=== PATIENT | female | born 1990 | race Caucasian/White ===

== ENCOUNTER 2019-05-30 07:29 | Inpatient (IN) | payer OTHER ==
[2019-05-30] MEDS ORDERED: DEXTROSE 5%-LACTATED RINGERS 1,000 ML IV SCH (09:45)
[2019-05-30] MEDS ORDERED: AMPICILLIN - 2 GM in SODIUM CHLORIDE 100 ML IVPB ONE (20:00)
[2019-05-30] MEDS ORDERED: ONDANSETRON 4 MG/2 ML VIAL IVPB ONE ×2 (20:00→20:30)
[2019-05-30] MEDS ORDERED: DEXTROSE 5%-LACTATED RINGERS 500 ML IV ONE ×2 (20:00→21:00)
[2019-05-30 20:42] LABS: BASO % 0.5 % (0-2.0); HEMATOCRIT 42.1 % (32.4-45.2); HEMOGLOBIN 14.4 GM/dL (10.7-15.3); LYMPH % 8.7 % (8-40); MCH 31.4 pg (25.7-33.7); MCHC 34.2 g/dl (32.0-36.0); MEAN CELL VOLUME 91.7 fl (80-96); MEAN PLT VOLUME 9.4 fl (7.5-11.1); MONO % 2.4 % (3.8-10.2); NEUT % 88.4 % (42.8-82.8); PLATELET COUNT 268 K/MM3 (134-434); RBC 4.59 M/mm3 (3.60-5.2); RDW 15.3 % (11.6-15.6); WHITE BLOOD COUNT 18.3 K/mm3 (4.0-10.0)
--- NOTE | 2019-05-30 20:49 | HP ---
Past Medical History - Primary Care Physician PCP:: Dileep Zamora - Admission Chief Complaint: 38 weeks, labor History of Present Illness: 29 yo f 38 weeks in labor , cx 6 cm 80 vx -3 mi, bulging , fhr cat 1 , regular contraction, no bleeding, no fever History Source: Patient Limitations to Obtaining History: No Limitations - Past Medical History ...: 1 ...Para: 0 ...Term: 0 ...: 0 ...Spon : 0 ...Induced : 0 ...EDC by [facility]: 06/09/19 - Past Surgical History Hx Myomectomy: No Hx Transabdominal Cerclage: No - Smoking History Smoking history: Never smoked Have you smoked in the past 12 months: No Aproximately how many cigarettes per day: 0 - Alcohol/Substance Use Hx Alcohol Use: No History of Substance Use: reports: None - Social History Usual Living Arrangement: Yes: With Spouse History of Recent Travel: No Home Medications - Allergies Allergies/Adverse Reactions: Allergies Allergy/AdvReac Type Severity Reaction Status Date / Time acetaminophen [From Percocet] Allergy Severe Itching Verified 05/30/19 09:45 oxycodone [From Percocet] Allergy Severe Itching Verified 05/30/19 09:45 PERCOCET Allergy Severe Itching Uncoded 02/19/14 14:38 - Home Medications Home Medications: Ambulatory Orders No Home Medications 0 dose .ROUTE UTDICT 05/24/12 Review of Systems - Review of Systems Constitutional: reports: No Symptoms Eyes: reports: No Symptoms HENT: reports: No Symptoms Neck: reports: No Symptoms Cardiovascular: reports: No Symptoms Respiratory: reports: No Symptoms Gastrointestinal: reports: No Symptoms Genitourinary: reports: No Symptoms Breasts: reports: No Symptoms Reported Musculoskeletal: reports: No Symptoms Integumentary: reports: No Symptoms Neurological: reports: No Symptoms Endocrine: reports: No Symptoms Hematology/Lymphatic: reports: No Symptoms Psychiatric: reports: No Symptoms Physical Exam - Maternity Vital Signs: Vital Signs Temperature 97.9 F 05/30/19 09:00 Pulse Rate 94 H 05/30/19 09:00 Respiratory Rate 20 05/30/19 09:00 Blood Pressure 118/75 05/30/19 09:00 O2 Sat by Pulse Oximetry (%) Constitutional: Yes: Well Nourished, No Distress, Calm Eyes: Yes: WNL, Conjunctiva Clear, EOM Intact HENT: Yes: WNL, Atraumatic, Normocephalic Neck: Yes: WNL, Supple, Trachea Midline Cardiovascular: Yes: WNL, Regular Rate and Rhythm Breast(s): Yes: WNL - Abdominal Exam/OB Fundal Height: 40 Number of Fetuses: Single Presentation: Vertex Contractions: Yes Regularity: Regular Intensity: Strong Monitor Mode: External Heart Rate Location: LLQ Accelerations: Non-Uniform Decelerations: None - Vaginal Exam/OB Vaginal Bleediing: Bloody Show Speculum Exam: No Dilatation (cm): 6 cm Effacement (%): 80 Amniotic Membrane Status: Bulging Presentation: Vertex/Position Station: -3 - Physical Exam Edema: Yes Edema: LLE: 1+, RLE: 1+ Deep Tendon Reflex Grade: Normal +2 Psychiatric: Yes: WNL Hemorrhage Risk Assessment - Risk Factors High Risk Factors: Yes: Active bleeding on admission, None Risk Score: 1 Risk Level: Medium Risk Problem List - Problems (1) First stage of labor established Code(s): [id number] - Assessment/Plan admit [facility] pain management
[2019-05-30] MEDS ORDERED: PROMETHAZINE HCL 25 MG/1 ML VIAL IVPUSH ONE (20:50)
[2019-05-30] MEDS ORDERED: BUTORPHANOL TARTRATE 1 MG/ML VIAL IVPUSH ONE (20:50)
[2019-05-30 20:52] LABS: INR 0.95 (0.83-1.09); PROTHROMBIN TIME (PATIENT) 11.2 SEC (9.7-13.0)
[2019-05-30 20:54] LABS: ACTIVATED PTT 25.2 SECONDS (25.2-36.5)
[2019-05-30 21:12] LABS: BLOOD UREA NITROGEN 11.4 mg/dL (7-18); CALCIUM 9.1 mg/dL (8.5-10.1); CREATININE 0.6 mg/dL (0.55-1.3); POTASSIUM 4.1 mmol/L (3.5-5.1)
[2019-05-30 21:23] VITALS: BMI 41.1
--- NOTE | 2019-05-30 23:07 | PN ---
Progress Note (short form) - Note Progress Note: 10 30 pm cx 8 cm 80 vx -1 arom, clear fhr cat 1, contraction q 43 to 4 min, wants epidural anesthesia Problem List - Problems (1) First stage of labor established Code(s): HOO8447 -
[2019-05-30] MEDS: FENTANYL/BUPIVACAINE/NS/PF - PCEA - 50 ML DISP.SYRIN EP SCH (23:15)
[2019-05-30] MEDS ORDERED: ELECTROLYTE-148 SOLN 1,000 ML IV SCH (23:15)
[2019-05-30] MEDS ORDERED: OXYTOCIN 30 UNITS in 0.9% NS 30 UNIT/500 ML INFUS.BAG IVPB SCH (23:45)
[2019-05-30] MEDS ORDERED: NALOXONE HCL 0.4 MG/ML VIAL IVPUSH PRN (23:53)
[2019-05-31] MEDS: AMPICILLIN - 1 GM in SODIUM CHLORIDE 100 ML IVPB SCH ×3 (00:28→13:05)
--- NOTE | 2019-05-31 04:30 | PN ---
Progress Note (short form) - Note Progress Note: cx 9 cm , 100 vx 0 MR , fhr 150 , reactive , will start pushings soon afebrile Problem List - Problems (1) First stage of labor established Code(s): [id number] -
[2019-05-31] MEDS ORDERED: BISACODYL 10 MG SUPP.RECT RC PRN (06:48)
[2019-05-31] MEDS ORDERED: METHYLERGONOVINE MALEATE 0.2 MG/1 ML AMP IM PRN (06:48)
[2019-05-31] MEDS ORDERED: BENZOCAINE 28 GM HEMORRHOIDAL OINTMENT TP PRN (06:48)
[2019-05-31] MEDS ORDERED: BENZOCAINE 20% 57 GM BOTTLE TP PRN (06:48)
[2019-05-31] MEDS ORDERED: WITCH HAZEL 50% (TUCKS) 40 PAD/JAR PAD TP PRN (06:48)
[2019-05-31] MEDS ORDERED: D5W-LR W/ 20 UNITS OXYTOCIN 20 UNIT/1,000 ML INFUS.BAG IV SCH (07:00)
[2019-05-31] MEDS ORDERED: OXYTOCIN 20 UNITS in 0.9% NS 20 UNIT/1,000 ML INFUS.BAG IV ONE (08:38)
--- NOTE | 2019-05-31 09:05 | PN ---
Delivery - Delivery Vaginal Delivery: Spontaneous Type of Anesthesia: Epidural Episiotomy/Laceration: Right Mediolateral (cx fully dilated ,RML episiotomy done , head delivered , ant. post. shoulder with no difficulty , live baby boy, 9/9, placenta complete , RML episiotomy in 3 layers with 2 0 chromic, rectal exam negative, no complication) EBL (cc): 500 Delivery, Single - Stages of Labor Date 1st Stage Initiatied: 05/30/19 Time 1st Stage Initiated: 20:30 Date 2nd Stage Initiated: 05/31/19 Time 2nd Stage Initiated: 05:30 Date of Delivery: 05/31/19 Time of Delivery: 05:55 Time Placenta Delivered: 05:57 - Condition of Play Back Operator/Extra Hand Present: No Gender: Male Weight: 8 lb 1 oz Position: Left, OA Total Hours ROM (Hrs/Mins): 7h 15m - 1 Minute Total Score: 9 5 Minutes Total Score: 9 - [place] Feeding Plan Initial Plan: Exclusive throughout hospitalization
[2019-05-31] MEDS ORDERED: OXYTOCIN 20 UNITS in 0.9% NS 20 UNIT/1,000 ML INFUS.BAG IV SCH (09:15)
[2019-05-31] MEDS: PRENATAL VITAMINS W/ FOLIC ACID TABLET (FP) PO SCH (10:27)
[2019-05-31] MEDS: FERROUS SO4 325 MG TABLET (FP) PO SCH ×2 (10:27→18:26)
[2019-05-31] MEDS: IBUPROFEN 600 MG TABLET (FP) PO PRN ×2 (13:08→18:26)
[2019-06-01] MEDS: IBUPROFEN 600 MG TABLET (FP) PO PRN ×5 (00:58→21:49)
[2019-06-01 07:52] LABS: BASO % 0.4 % (0-2.0); EOS % 0.7 % (0-4.5); HEMATOCRIT 23.4 % (32.4-45.2); HEMOGLOBIN 7.9 GM/dL (10.7-15.3); LYMPH % 18.9 % (8-40); MCHC 33.8 g/dl (32.0-36.0); MEAN CELL VOLUME 94.9 fl (80-96); MEAN PLT VOLUME 8.5 fl (7.5-11.1); MONO % 5.2 % (3.8-10.2); NEUT % 74.8 % (42.8-82.8); PLATELET COUNT 198 K/MM3 (134-434); RBC 2.47 M/mm3 (3.60-5.2); RDW 15.6 % (11.6-15.6)
[2019-06-01] MEDS: FERROUS SO4 325 MG TABLET (FP) PO SCH ×2 (08:27→17:15)
[2019-06-01] MEDS: PRENATAL VITAMINS W/ FOLIC ACID TABLET (FP) PO SCH (09:13)
[2019-06-01] MEDS: FENTANYL/BUPIVACAINE/NS/PF - PCEA - 50 ML DISP.SYRIN EP SCH (10:30)
--- NOTE | 2019-06-01 13:49 | PN ---
Post Progress Note - Subjective Subjective: Patient without acute complaints. Reports tolerating oral intake without nausea or vomiting. Ambulating without dizziness. Denies fevers or chills. Pain well controlled with oral pain medication. without difficulty. Passing flatus. Post Day: 1 Type of Delivery: Vital Signs: Vital Signs Temperature 97.8 F 06/01/19 09:27 Pulse Rate 97 H 06/01/19 09:27 Respiratory Rate 20 06/01/19 09:27 Blood Pressure 116/64 06/01/19 09:27 O2 Sat by Pulse Oximetry (%) 100 05/31/19 08:50 Breast Exam: Yes: Soft Uterus: Yes: Fundus Firm Abdomen/GI: Yes: Abdomen soft Lochia: Yes: Rubra Lochia, amount: Small Extremities: Yes: Calves non-tender Perineum: Yes: Episiotomy Activity: Ambulating - Labs Labs: CBC WBC 14.0 K/mm3 (4.0-10.0) H 06/01/19 07:15 RBC 2.47 M/mm3 (3.60-5.2) L 06/01/19 07:15 Hgb 7.9 GM/dL (10.7-15.3) L 06/01/19 07:15 Hct 23.4 % (32.4-45.2) L D 06/01/19 07:15 MCV 94.9 fl (80-96) 06/01/19 07:15 MCH 32.0 pg (25.7-33.7) 06/01/19 07:15 MCHC 33.8 g/dl (32.0-36.0) 06/01/19 07:15 RDW 15.6 % (11.6-15.6) 06/01/19 07:15 Plt Count 198 K/MM3 (134-434) D 06/01/19 07:15 MPV 8.5 fl (7.5-11.1) 06/01/19 07:15 Absolute Neuts (auto) 10.5 K/mm3 (1.5-8.0) H 06/01/19 07:15 Neutrophils % 74.8 % (42.8-82.8) 06/01/19 07:15 Lymphocytes % 18.9 % (8-40) D 06/01/19 07:15 Monocytes % 5.2 % (3.8-10.2) D 06/01/19 07:15 Eosinophils % 0.7 % (0-4.5) D 06/01/19 07:15 Basophils % 0.4 % (0-2.0) 06/01/19 07:15 Nucleated RBC % 0 % (0-0) 06/01/19 07:15 Assessment/Plan 29yo P1 s/p VSS, Afebrile no signs of sever anemia encourage ambulation cont. routine PP care Plan d/c home tomorrow
[2019-06-01] MEDS ORDERED: SENNOSIDES/DOCUSATE COMBO (SENNA PLUS) TABLET (UD) PO PRN (22:00)
[2019-06-02] MEDS: IBUPROFEN 600 MG TABLET (FP) PO PRN ×2 (02:49→08:42)
--- NOTE | 2019-06-02 07:48 | DS ---
Physical Exam-PROCESS STEWARD Vital Signs: Vital Signs Temperature 97.9 F 06/01/19 21:36 Pulse Rate 99 H 06/01/19 21:36 Respiratory Rate 20 06/01/19 21:36 Blood Pressure 118/65 06/01/19 21:36 O2 Sat by Pulse Oximetry (%) 100 05/31/19 08:50 Labs: CBC, BMP 06/01/19 07:15 05/30/19 20:20 Delivery - Delivery Vaginal Delivery: Spontaneous Type of Anesthesia: Epidural Episiotomy/Laceration: Right Mediolateral (cx fully dilated ,RML episiotomy done , head delivered , ant. post. shoulder with no difficulty , live baby boy, 9/9, placenta complete , RML episiotomy in 3 layers with 2 0 chromic, rectal exam negative, no complication) EBL (cc): 500 Delivery, Single - Stages of Labor Date 1st Stage Initiatied: 05/30/19 Time 1st Stage Initiated: 20:30 Date 2nd Stage Initiated: 05/31/19 Time 2nd Stage Initiated: 05:30 Date of Delivery: 05/31/19 Time of Delivery: 05:55 Time Placenta Delivered: 05:57 - Condition of Infant Physician Asst/Technical Staff Engineer Present: No Gender: Male Weight: 8 lb 1 oz Position: Left, OA Total Hours ROM (Hrs/Mins): 7h 15m - 1 Minute Total Score: 9 5 Minutes Total Score: 9 - [place] Feeding Plan Initial Plan: Exclusive throughout hospitalization Discharge Summary Reason For Visit: LABOR Current Active Problems First stage of labor established (Acute) Condition: Stable - Instructions Diet, Activity, Other Instructions: DISCHARGE TO HOME MAINTAIN APPOINTMENTS CALL MD AND COME TO HOSPITAL IF YOU HAVE REGULAR CONTRACTIONS,YOU BREAK YOUR WATER, IF YOU HAVE VAGINAL BLEEDING OR IF YOU DO NOT FEEL THE BABY MOVING Referrals: Dileep Zamora MD [Staff Physician] - - Home Medications Comprehensive Discharge Medication List: Ambulatory Orders Pnv No.95/Ferrous Fum/Folic AC [ Formula] 1 each PO DAILY 05/31/19
[2019-06-02] MEDS: FERROUS SO4 325 MG TABLET (FP) PO SCH (08:37)
[2019-06-02] MEDS: PRENATAL VITAMINS W/ FOLIC ACID TABLET (FP) PO SCH (09:17)
[2019-06-02 12:15] VITALS: BP 109/71; PULSE 86; TEMP 98
== END 2019-06-02 14:00 | disposition home or self-care (01) | DRG 560 ==
LOC: JDEL 07:29 → JLDR 19:25 → J3W 05-31 08:45
PROVIDERS: ADMIT Obstetrics & Gynecology; ATTEND Obstetrics & Gynecology
PROC: 10E0XZZ Delivery of Products of Conception, External Approach (ICD-10-PCS; principal; 2019-05-31)
PROC: 0W8NXZZ Division of Female Perineum, External Approach (ICD-10-PCS; 2019-05-31)
DX: O80 Encounter for full-term uncomplicated delivery (principal); Z3A.38 38 weeks gestation of pregnancy; Z37.0 Single live birth
CPT/HCPCS: 36415; 36600; 59025; 59409; 80048; 82803; 85025; 85610; 85730; 86593; 86850; 86900; 86901; 87389